=== PATIENT | female | born 1995 | race Caucasian/White ===

== ENCOUNTER 2020-02-22 13:13 | Emergency (ER) | payer OTHER ==
[~2020-02-22] VITALS: Ht 152.4 cm; Wt 46.3 kg
[2020-02-22 13:33] VITALS: BP 112/79
[2020-02-22] MEDS ORDERED: CLINDAMYCIN HC300 MG PO (14:17)
[2020-02-22] MEDS ORDERED: NAPROXEN375 MG PO (14:17)
[2020-02-22] MEDS ORDERED: TRAMADOL 50 MG50 MG PO (14:17)
== END 2020-02-22 14:37 | disposition home or self-care (01) ==
LOC: ER 13:13
DX: L03.811 Cellulitis of head [any part, except face] (principal); F17.210 Nicotine dependence, cigarettes, uncomplicated; Z91.040 Latex allergy status; Z98.890 Other specified postprocedural states